=== PATIENT | male | born 1970 | race Caucasian/White ===

== ENCOUNTER 2017-10-29 20:47 | Emergency (ER) | payer BC, OTHER, SELFPAY ==
[2017-10-29] MEDS ORDERED: Diazepam 5 MG TAB ONE (21:25)
[2017-10-29] MEDS ORDERED: Ketorolac Tromethamine 60 MG/2 ML VIAL ONE (21:25)
[2017-10-29] MEDS ORDERED: HYDROcodone/Acetaminophen 10/325 mg Tablet ONE (21:25)
[2017-10-29] MEDS ORDERED: Dexamethasone 4 MG TAB ONE (21:25)
== END 2017-10-29 22:10 | disposition home or self-care (01) ==
LOC: MADERS 20:47
DX: M54.5 Low back pain (principal); F17.210 Nicotine dependence, cigarettes, uncomplicated
CPT/HCPCS: 96372; J1885; J8540

== ENCOUNTER 2023-03-06 09:05 | Outpatient (CLI) | payer BC | END 2023-03-06 09:06 | disposition home or self-care (01) | LOC: MADRAD 09:05 | PROVIDERS: ATTEND Nurse Practitioner Family | DX: Z00.8 Encounter for other general examination (principal); I12.9 Hypertensive chronic kidney disease with stage 1 through stage 4 chronic kidney disease, or unspecified chronic kidney disease; E11.29 Type 2 diabetes mellitus with other diabetic kidney complication; N18.9 Chronic kidney disease, unspecified; R52 Pain, unspecified; W19.XXXA Unspecified fall, initial encounter; E03.9 Hypothyroidism, unspecified; E07.9 Disorder of thyroid, unspecified ==

== ENCOUNTER 2024-07-21 11:49 | Emergency (ER) | payer BC ==
[2024-07-21] MEDS ORDERED: Ondansetron ODT 4 MG TAB ONE (12:36)
[2024-07-21] MEDS ORDERED: Morphine 4 MG/ML VIAL ONE (12:36)
[2024-07-21] MEDS ORDERED: Ketorolac Tromethamine 60 MG/2 ML VIAL ONE (12:36)
== END 2024-07-21 13:29 | disposition home or self-care (01) ==
LOC: MADERS 11:49
DX: G57.02 Lesion of sciatic nerve, left lower limb (principal); E11.9 Type 2 diabetes mellitus without complications; I10 Essential (primary) hypertension; F17.220 Nicotine dependence, chewing tobacco, uncomplicated; Z79.84 Long term (current) use of oral hypoglycemic drugs
CPT/HCPCS: 96372; 99283; J1885; J2272; Q0162